=== PATIENT | female | born 1940 | race Caucasian/White ===

== ENCOUNTER 2018-02-03 13:39 | Emergency (ER) | payer OTHER ==
[~2018-02-03] VITALS: Ht 170.2 cm; Wt 97.5 kg
[2018-02-03 13:39] VITALS: BP_SYST 135
--- NOTE | 2018-02-03 13:39 | NUR ---
Pt to ER bed 08. Pt s/p fall last night in the bath room while "bending over." She states that she hit her Right face on a bathroom cabinet and digit 1 of right foot "bent backwards." Blue discoloration to Right eye, blue spots noted on digit 1 of right foot. Pt denies LOC.
--- NOTE | 2018-02-03 13:50 | NUR ---
Dr. Perrin at bedside.
--- NOTE | 2018-02-03 14:14 | NUR ---
Pt to x-ray via W/C.
[2018-02-03] MEDS ORDERED: IBUPROFEN 600 MG TABLET PO ONE (14:15)
--- NOTE | 2018-02-03 14:20 | NUR ---
Pt returns from x-ray.
--- NOTE | 2018-02-03 15:30 | NUR ---
No needs verbalized at this time. Grandson at bedside.
[2018-02-03 17:10] VITALS: BP_SYST 117
--- NOTE | 2018-02-03 17:10 | NUR ---
Patient given written and verbal discharge instructions and verbalizes understanding. ER MD discussed with patient the results and treatment provided. Patient in stable condition. ID arm band removed. Rx of Ibuprofen given. Patient educated on pain management and to follow up with PMD. Pain Scale 2/10. Opportunity for questions provided and answered. Medication side effect fact sheet provided.
== END 2018-02-03 17:10 | disposition home or self-care (01) ==
LOC: SED 13:39
DX: S92.425A Nondisplaced fracture of distal phalanx of left great toe, initial encounter for closed fracture (principal); S00.11XA Contusion of right eyelid and periocular area, initial encounter; Z88.5 Allergy status to narcotic agent; W18.09XA Striking against other object with subsequent fall, initial encounter; Y93.89 Activity, other specified; Y92.091 Bathroom in other non-institutional residence as the place of occurrence of the external cause; Y99.8 Other external cause status
CPT/HCPCS: 70450-TC; 70486-TC; 73521; 99284